=== PATIENT | male | born 1995 | race Caucasian/White ===

== ENCOUNTER 2018-07-01 09:09 | Emergency (ER) | payer OTHER ==
[2018-07-01 09:13] VITALS: BP 137/82
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
[2018-07-01] MEDS ORDERED: IBUPROFEN 600 MG TAB PO ONE (09:57)
== END 2018-07-01 10:05 | disposition home or self-care (01) ==
DX: S80.01XA Contusion of right knee, initial encounter (principal); S80.211A Abrasion, right knee, initial encounter; Y04.0XXA Assault by unarmed brawl or fight, initial encounter; Y99.8 Other external cause status; F17.200 Nicotine dependence, unspecified, uncomplicated; G40.909 Epilepsy, unspecified, not intractable, without status epilepticus